=== PATIENT | female | born 1970 | race Caucasian/White ===

== ENCOUNTER 2020-06-24 21:01 | Emergency (ER) | payer OTHER, SELFPAY ==
[~2020-06-24] VITALS: Ht 170.2 cm; Wt 84.0 kg
--- NOTE | 2020-06-24 21:06 | NUR ---
TASK RN: PT BIB [facility] FROM HOME AFTER SNADING DECK AND FALLING, UNKNOWN HEAD TRAUMA OR LOC, PT STATES "I DONT THINK SO" BUT PT REPORTS BEING UNSURE AND DRINKING TODAY. PT HAS LAC ON R FOREARM APPROXIMATELY 2.5 INCHES LONG. PT REPORTS PULLING NAIL FROM ARM AFTER FALL. PT NAD, ANOx4, CMS INTACT, ETOH ODOR, UNSTEADY ON FEET ACCORDING TO [facility]. [facility]. LAW LARES AT FOR EVAL AND POC
[2020-06-24] MEDS ORDERED: LIDOCAINE-MPF 1%, 5ML INFIL ONE (21:30)
[2020-06-24] MEDS ORDERED: CEFAZOLIN 1,000 MG IM ONE (21:30)
[2020-06-24] MEDS ORDERED: LIDOCAINE-MPF 1%, 5ML ONE (21:36)
[2020-06-24] MEDS ORDERED: DIPH,PERTUSS(ACELL),TET VAC/PF 0.5 ML IM-VACC ONE ×2 (21:38→22:00)
[2020-06-24] MEDS ORDERED: CEFAZOLIN 1,000 MG ONE (21:38)
--- NOTE | 2020-06-24 21:41 | NUR ---
MEAT MOLDER: PT NOT FOLLOWING DIRECTIONS TO STAY IN BED. HIGH FALL RISK SECONDARY TO ETOH. SITTER REQUESTED.
--- NOTE | 2020-06-24 21:51 | NUR ---
ALVIN AT BEDSIDE FOR SUTURE. PT MEDICATED PER MAR TOLERATED WELL. DENIES FURTHER NEEDS
[2020-06-24] MEDS ORDERED: NEOSPORIN OINT. PKT 1 PACKET ONE (21:57)
--- NOTE | 2020-06-24 22:00 | NUR ---
PT VERY SURE THAT SHE CAME TO ER WITH BRUNA, PT DOES NOT HAVE BRUNA AT THIS TIME, LENNOX CALLED THE MEDIC DOES IN FACT HAVE THE BRUNA DENTAL THERAPIST TO BRING TO PT.
[2020-06-24 22:40] VITALS: BP 128/89
--- NOTE | 2020-06-25 00:09 | NUR ---
STILL NO PURSE, LENNOX CALLED AGAIN TO SEE WHERE THE PURSE IS STS THEY GOT BUSY WITH SOMETHING AND CAN BRING HER PURSE TO HER HOUSE, PT TO BE DC WITH TAXI VOUCHER BACK HOME SHORTLY
--- NOTE | 2020-06-25 00:23 | NUR ---
Patient/Caregiver given discharge instructions and they have confirmed that they understand the instructions. Patient ambulatory with steady gait. pt to be dc with taxi for safety
== END 2020-06-25 00:24 | disposition home or self-care (01) ==
LOC: ED 21:31
DX: S51.811A Laceration without foreign body of right forearm, initial encounter (principal); F17.200 Nicotine dependence, unspecified, uncomplicated; X58.XXXA Exposure to other specified factors, initial encounter; Y93.89 Activity, other specified; Y92.098 Other place in other non-institutional residence as the place of occurrence of the external cause; Y99.8 Other external cause status
CPT/HCPCS: 12032; 90471; 90715; 96372; 99284; J0690

== ENCOUNTER 2021-05-20 20:53 | Inpatient (IN) | payer BC, OTHER ==
[~2021-05-20] VITALS: Ht 165.1 cm; Wt 67.8 kg
[2021-05-20] MEDS ORDERED: LORazepam 2 MG/ML, 1ML ONE ×2 (21:21→22:19)
[2021-05-20] MEDS ORDERED: PLEASE ENTER HEIGHT AND WEIGHT MC SCH (21:30)
[2021-05-20] MEDS ORDERED: LORazepam 2 MG/ML, 1ML IVPush ONE ×2 (21:30→22:30)
[2021-05-20] MEDS ORDERED: SODIUM CHLORIDE 0.9% 1,000ML IVBOLUS ONE (21:30)
[2021-05-20 21:39] LABS: BASOPHILS % (AUTO) 0 % (0-1); EOSINOPHILS % (AUTO) 0 % (1-7); LYMPHOCYTES % (AUTO) 2 % (22-44); MEAN CORPUSCULAR HEMOGLOBIN 33.8 pg (27.0-34.8); MONOCYTES % (AUTO) 6 % (2-9); NEUTROPHILS % (AUTO) 91 % (42-75); PLATELET COUNT 123 x10^3/uL (130-400); RED BLOOD COUNT 4.07 x10^6/uL (3.82-5.3); RED CELL DISTRIBUTION WIDTH 12.6 % (9.6-15.2)
[2021-05-20 21:44] LABS: ALANINE AMINOTRANSFERASE 82 U/L (12-78); ALBUMIN 3.9 g/dL (3.4-5.0); ANION GAP 10 mmol/L (5-15); CALCIUM 9.9 mg/dL (8.5-10.1); CHLORIDE 97 mmol/L (98-107)
[2021-05-20 21:47] LABS: ALKALINE PHOSPHATASE 91 U/L (45-117); BILIRUBIN,TOTAL 1.6 mg/dL (0.2-1.0); CREATININE 0.81 mg/dL (0.55-1.02); TOTAL PROTEIN 8.2 g/dL (6.4-8.2)
[2021-05-20 23:00] VITALS: BP 135/91
[2021-05-20] MEDS ORDERED: NICOTINE 14MG/24 HR PATCH.TD24 TD ONE (23:00)
[2021-05-21] MEDS ORDERED: ONDANSETRON 2MG/ML, 2ML IVPush PRN (01:00)
[2021-05-21] MEDS ORDERED: MELATONIN 5 MG TABLET PO PRN (01:00)
[2021-05-21] MEDS ORDERED: LORazepam 2 MG/ML, 1ML IV PRN ×2 (01:00)
[2021-05-21] MEDS ORDERED: BACLOFEN 10 MG TABLET PO PRN (01:00)
[2021-05-21] MEDS ORDERED: LABETALOL 5MG/ML, 20ML IVPush PRN (01:00)
[2021-05-21] MEDS ORDERED: POLYETHYLENE GLYCOL 17 GM PACKET PO PRN (01:00)
[2021-05-21] MEDS ORDERED: GUAIFENESIN/DM 200-20MG, 10ML UDC PO PRN (01:00)
[2021-05-21] MEDS ORDERED: POTASSIUM CHLORIDE 20 MEQ, MAGNESIUM SULFATE 1 GM, FOLIC ACID 1 MG, THIAMINE 200 MG, MV... IV SCH ×2 (01:00)
[2021-05-21] MEDS ORDERED: GABAPENTIN 300 MG CAPSULE PO PRN (01:00)
[2021-05-21] MEDS ORDERED: LORazepam 1MG TABLET PO PRN (01:00)
[2021-05-21] MEDS ORDERED: ACETAMINOPHEN 325 MG TABLET PO PRN (01:00)
[2021-05-21 04:20] LABS: BASOPHILS % (AUTO) 0 % (0-1); EOSINOPHILS % (AUTO) 0 % (1-7); LYMPHOCYTES % (AUTO) 13 % (22-44); MEAN CORPUSCULAR HEMOGLOBIN 33.7 pg (27.0-34.8); MEAN CORPUSCULAR HGB CONC 34.5 g/dL (32.4-35.8); MEAN PLATELET VOLUME 8.2 fL (7.4-10.4); MONOCYTES % (AUTO) 7 % (2-9); NEUTROPHILS % (AUTO) 80 % (42-75); PLATELET COUNT 101 x10^3/uL (130-400); RED BLOOD COUNT 3.98 x10^6/uL (3.82-5.3); RED CELL DISTRIBUTION WIDTH 12.8 % (9.6-15.2)
[2021-05-21 04:28] LABS: ANION GAP 6 mmol/L (5-15); CALCIUM 9.1 mg/dL (8.5-10.1); CHLORIDE 102 mmol/L (98-107)
[2021-05-21 04:29] LABS: CREATININE 0.52 mg/dL (0.55-1.02)
[2021-05-21] MEDS: ENOXAPARIN 40 MG/0.4 ML SQ SCH (05:20)
[2021-05-21] MEDS: LORazepam 0.5MG TABLET PO PRN ×3 (07:15→20:36)
[2021-05-21] MEDS: FAMOTIDINE 20 MG TABLET PO SCH ×2 (07:29→20:36)
[2021-05-21 08:19] VITALS: BP 134/43
[2021-05-21 13:43] VITALS: BP 121/83
[2021-05-21 19:27] VITALS: BP 143/72
[2021-05-22 02:16] VITALS: BP 136/68
[2021-05-22] MEDS: ENOXAPARIN 40 MG/0.4 ML SQ SCH (05:07)
[2021-05-22 07:11] VITALS: BP 169/122
[2021-05-22] MEDS: FAMOTIDINE 20 MG TABLET PO SCH (08:03)
[2021-05-22] MEDS ORDERED: METO25TA35 PO (08:33)
[2021-05-22] MEDS ORDERED: MULTIVITAMINS/MINERALS TABLET PO SCH (09:00)
[2021-05-22 09:26] VITALS: BP 136/96
[2021-05-22 09:41] LABS: BASOPHILS % (AUTO) 0 % (0-1); EOSINOPHILS % (AUTO) 1 % (1-7); LYMPHOCYTES % (AUTO) 15 % (22-44); MEAN CORPUSCULAR HEMOGLOBIN 34.1 pg (27.0-34.8); MEAN CORPUSCULAR HGB CONC 34.8 g/dL (32.4-35.8); MEAN PLATELET VOLUME 9.1 fL (7.4-10.4); MONOCYTES % (AUTO) 6 % (2-9); NEUTROPHILS % (AUTO) 77 % (42-75); PLATELET COUNT 102 x10^3/uL (130-400); RED BLOOD COUNT 4.35 x10^6/uL (3.82-5.3); RED CELL DISTRIBUTION WIDTH 12.5 % (9.6-15.2)
[2021-05-22 09:54] LABS: ANION GAP 11 mmol/L (5-15); CALCIUM 9.6 mg/dL (8.5-10.1); CHLORIDE 103 mmol/L (98-107); CREATININE 0.67 mg/dL (0.55-1.02)
== END 2021-05-22 09:44 | disposition home or self-care (01) | DRG 101 ==
LOC: ED 21:00 → EDIP 05-21 00:37 → 4WST 05-21 00:53
PROVIDERS: ADMIT Internal Medicine; ATTEND Hospitalist
DX: R56.9 Unspecified convulsions (principal); F10.239 Alcohol dependence with withdrawal, unspecified; F12.90 Cannabis use, unspecified, uncomplicated; D69.6 Thrombocytopenia, unspecified; F17.210 Nicotine dependence, cigarettes, uncomplicated; F19.10 Other psychoactive substance abuse, uncomplicated; I10 Essential (primary) hypertension; R40.0 Somnolence
CPT/HCPCS: 36415; 96374; 96376; 99285; J7121; 80048; 80053; 80320; 83605; 83735; 85025; 93005; G0378; J1650; J3411; J3475; J3480; G0480; J2060; J7030